=== PATIENT | female | born 1970 | race Caucasian/White ===

== ENCOUNTER 2019-11-15 09:19 | Outpatient (CLI) | payer MEDICAID ==
[2019-11-15 09:47] LABS: BASOPHILS 0.3 % (0-2); EOSINOPHILS 4.9 % (0-7); HEMATOCRIT 37.9 % (36.0-48.0); HEMOGLOBIN 12.5 g/dL (12-16); IMMATURE GRANULOCYTES 0.4 % (0-5); MCV 87.9 fL (80.0-100.0); MEAN PLATELET VOLUME 9.1 fL (7.4-10.4); MONOCYTES 7.2 % (2-11); NEUTROPHILS 70.2 % (40-80); PLATELET COUNT 335 10x3/uL (130-400); RBC 4.31 10x6/uL (4.00-5.40); WBC 17.1 10x3/uL (4.8-10.8)
[2019-11-15 09:56] LABS: APTT 26.6 SECONDS (22.8-39.4); INR 0.92 (0.85-1.17); PROTIME 12.3 SECONDS (11.6-15.0)
[2019-11-15 09:59] LABS: ANION GAP 8.6 mmol/L (8-16); CARBON DIOXIDE 27.8 mmol/L (21.0-32.0); CREATININE - SERUM 1.3 mg/dL (0.6-1.3); POTASSIUM - SERUM 4.4 mmol/L (3.5-5.1)
[2019-11-15 10:08] LABS: HCG SERUM NEGATIVE (NEGATIVE)
--- NOTE | 2019-11-15 10:12 | NUR ---
ARRIVED TO FLOOR DRINKING TEA, DR. DOUGLASS NOTIFIED. PROCEDURE MAY STILL BE DONE BUT WITHOUT SEDATION OR PROCEDURE CAN BE RESCHEDULED. OPTIONS EXPLAINED AND PT DECIDED TO CANCEL AND RESCHEDULE PROCEDURE.
== END 2019-11-15 10:16 | disposition home or self-care (01) ==
LOC: D.CT 09:19
PROVIDERS: General Practice; ATTEND Internal Medicine Hematology & Oncology
DX: D72.829 Elevated white blood cell count, unspecified (principal); I10 Essential (primary) hypertension; E10.9 Type 1 diabetes mellitus without complications; D68.61 Antiphospholipid syndrome; R06.00 Dyspnea, unspecified; R07.89 Other chest pain; E78.5 Hyperlipidemia, unspecified; E03.9 Hypothyroidism, unspecified; J45.909 Unspecified asthma, uncomplicated; Z79.4 Long term (current) use of insulin; Z53.9 Procedure and treatment not carried out, unspecified reason

== ENCOUNTER 2019-11-18 07:42 | Outpatient (CLI) | payer MEDICAID ==
[~2019-11-18] VITALS: Ht 175.3 cm; Wt 136.4 kg
[2019-11-18 08:08] LABS: HEMATOCRIT 37.2 % (36.0-48.0); HEMOGLOBIN 12.4 g/dL (12-16); IMMATURE GRANULOCYTES 0.7 % (0-5); MCH 28.9 pg (26.0-34.0); MCHC 33.3 g/dL (31.0-37.0); MCV 86.7 fL (80.0-100.0); MEAN PLATELET VOLUME 9.1 fL (7.4-10.4); PLATELET COUNT 352 10x3/uL (130-400); RBC 4.29 10x6/uL (4.00-5.40); RDW 19.6 % (11.5-14.5); WBC 20.9 10x3/uL (4.8-10.8)
[2019-11-18 08:14] LABS: APTT 23.2 SECONDS (22.8-39.4); INR 0.95 (0.85-1.17); PROTIME 12.6 SECONDS (11.6-15.0)
[2019-11-18 08:18] LABS: ANION GAP 8.9 mmol/L (8-16); CARBON DIOXIDE 25.4 mmol/L (21.0-32.0); CREATININE - SERUM 1.2 mg/dL (0.6-1.3); POTASSIUM - SERUM 4.3 mmol/L (3.5-5.1)
[2019-11-18] MEDS ORDERED: LEXAPRO20 MG PO (08:40)
[2019-11-18] MEDS ORDERED: BUPROPION XL300 MG PO (08:40)
[2019-11-18] MEDS ORDERED: HUMULIN R100 UNIT/1 SC (08:40)
[2019-11-18] MEDS ORDERED: LITHIUM CARBON300 MG PO (08:41)
[2019-11-18] MEDS ORDERED: MECLIZINE HCL25 MG PO (08:42)
[2019-11-18] MEDS ORDERED: DEPO-PROVERA (08:43)
[2019-11-18] MEDS ORDERED: VALSARTAN-HCTZ1 EAC3 PO (08:44)
[2019-11-18] MEDS ORDERED: HYDROCODON-ACE1 EAC2 PO (08:44)
[2019-11-18] MEDS ORDERED: VALTREX500 MG PO (08:45)
[2019-11-18] MEDS ORDERED: TRESIBA FL100 UNIT/1 SC (08:45)
[2019-11-18 09:00] VITALS: Ht 175.3 cm; Wt 136.4 kg
[2019-11-18 09:46] LABS: HCG URINE NEGATIVE (NEGATIVE)
[2019-11-18 10:20] LABS: LYMPHOCYTES 22 % (15-50); MONOCYTES 12 % (2-11); NEUTROPHILS 64 % (40-80)
[2019-11-18 10:21] LABS: EOSINOPHILS 2 % (0-7); PLATELET ESTIMATE NORMAL
--- NOTE | 2019-11-18 13:51 | NUR ---
1330-VSS.DENIES PAIN. DRESSING CDI. NO DISTRESS. TOLERATED SANDWHICH TRAY. HAS AMBULATED TO RESTROOM AND VOIDED WITHOUT COMPLICATIONS. REMOVED IV WITH CATH INTACT,DISPOSED INTO SHARPS,COVERED WITH GUAZE,SECURED WITH MEDIPORE TAPE.
--- NOTE | 2019-11-18 13:59 | NUR ---
1345-PT DRESSED. REVIEWED POST OPERATIVE INSTRUCTIONS. VERBALIZED UNDERSTANDING. ESCORTED OUT VIA W/C BY STAFF WITH FATHER AWAITING TO DRIVE HOME.
== END 2019-11-18 13:45 | disposition home or self-care (01) ==
LOC: D.CT 07:42
PROVIDERS: Radiology Vascular & Interventional Radiology; ATTEND Internal Medicine Hematology & Oncology
DX: D72.829 Elevated white blood cell count, unspecified (principal); I10 Essential (primary) hypertension; E78.5 Hyperlipidemia, unspecified; E03.9 Hypothyroidism, unspecified; E11.40 Type 2 diabetes mellitus with diabetic neuropathy, unspecified; J45.909 Unspecified asthma, uncomplicated; Z79.4 Long term (current) use of insulin; E63.8 Other specified nutritional deficiencies; R60.0 Localized edema; R06.00 Dyspnea, unspecified; F31.9 Bipolar disorder, unspecified; E83.52 Hypercalcemia; M10.9 Gout, unspecified; M54.5 Low back pain